=== PATIENT | male | born 1965 | race Caucasian/White ===

== ENCOUNTER 2018-05-03 08:11 | Emergency (ER) | payer BC ==
--- NOTE | 2018-05-03 08:25 | EDM.PDOC ---
ED HPI GENERAL MEDICAL PROBLEM - General Chief Complaint: Neuro Symptoms/Deficits Stated Complaint: LT SIDE OF FACE HURTS,LIPS ARE SWOLLEN Time Seen by Provider: 05/03/18 08:17 - History of Present Illness INITIAL COMMENTS - FREE TEXT/NARRATIVE: HISTORY AND PHYSICAL: History of present illness: Patient 52-year-old white male presents with a concern of left facial pain and numbness he states he was shaving recently and she does lower lip sustaining abrasions had some pain and swelling since then has progressed to pain and numbness to his left face he was seen recently in the clinic and put on Augmentin he denies any visual disturbance any other neurological signs or symptoms or any other complaints. Review of systems: As per history of present illness and below otherwise all systems reviewed and negative. Past medical history: As per history of present illness and as reviewed below otherwise noncontributory. Surgical history: As per history of present illness and as reviewed below otherwise noncontributory. Social history: No reported history of drug or alcohol abuse. Family history: As per history of present illness and as reviewed below otherwise noncontributory. Physical exam: HEENT: Patient has an excoriated area of his lower lip with some small swelling noted, normocephalic, pupils reactive, negative for conjunctival pallor or scleral icterus, mucous membranes moist, throat clear, neck supple, nontender, trachea midline. Lungs: Clear to auscultation, breath sounds equal bilaterally, chest nontender. Heart: S1S2, regular, negative for clicks, rubs, or JVD. Abdomen: Soft, nondistended, nontender. Negative for masses or hepatosplenomegaly. Negative for costovertebral tenderness. Pelvis: Stable nontender. Genitourinary: Deferred. Rectal: Deferred. Extremities: Atraumatic, negative for cords or calf pain. Neurovascular unremarkable. Neuro: Awake, alert, oriented. Cranial nerves II through XII unremarkable. Cerebellum unremarkable. Motor and sensory unremarkable throughout. Exam nonfocal. Diagnostics: CBC CMP PT/INR troponin EKG chest x-ray CT brain CT maxillofacial Therapeutics: Saline lock Impression: #1 superficial facial cellulitis #2 left face pain/paresthesia etiology to be determined Definitive disposition and diagnosis as appropriate pending reevaluation and review of above. - Related Data Allergies Allergy/AdvReac Type Severity Reaction Status Date / Time magnesium stearate Allergy Rash Verified 05/03/18 09:08 moxifloxacin [From Avelox] Allergy Rash Verified 05/03/18 09:08 Home Meds: Home Meds Amoxicillin/Clavulanate K [Augmentin 875-125 MG] 05/03/18 [History] Hydrochlorothiazide 12.5 mg PO DAILY 05/03/18 [History] amLODIPine Besylate [Norvasc] 5 mg PO DAILY 05/03/18 [History] ED ROS GENERAL - Review of Systems Review Of Systems: ROS reveals no pertinent complaints other than HPI. ED EXAM, GENERAL - Physical Exam Exam: See Below (See dictation) Course - Vital Signs Last Recorded V/S: Last Vital Signs Temp 36.3 C 05/03/18 08:23 Pulse 66 05/03/18 08:23 Resp 18 05/03/18 08:23 BP 158/99 H 05/03/18 08:23 Pulse Ox 98 05/03/18 08:23 - Orders/Labs/Meds Orders: Active Orders 24 hr Category Date Time Status Cardiac Monitoring [RC] . DIRECTED Care 05/03/18 08:22 Active EKG 12 Lead [EKG Documentation Completion] [RC] STAT Care 05/03/18 08:15 Active Labs: Laboratory Tests 05/03/18 05/03/18 05/03/18 Range/Units 08:15 08:15 08:15 WBC 5.31 (4.0-11.0) K/uL RBC 4.58 (4.50-5.90) M/uL Hgb 14.0 (13.0-17.0) g/dL Hct 40.0 (38.0-50.0) % MCV 87.3 (80.0-98.0) fL MCH 30.6 (27.0-32.0) pg MCHC 35.0 (31.0-37.0) g/dL RDW Std Deviation 41.4 (28.0-62.0) fl RDW Coeff of Ameena 13 (11.0-15.0) % Plt Count 187 (150-400) K/uL MPV 9.60 (7.40-12.00) fL Neut % (Auto) 64.9 (48.0-80.0) % Lymph % (Auto) 24.9 (16.0-40.0) % Ross % (Auto) 7.9 (0.0-15.0) % Eos % (Auto) 2.1 (0.0-7.0) % Baso % (Auto) 0.2 (0.0-1.5) % Neut # (Auto) 3.5 (1.4-5.7) K/uL Lymph # (Auto) 1.3 (0.6-2.4) K/uL Ross # (Auto) 0.4 (0.0-0.8) K/uL Eos # (Auto) 0.1 (0.0-0.7) K/uL Baso # (Auto) 0.0 (0.0-0.1) K/uL Nucleated RBC % 0.0 /100WBC Nucleated RBCs # 0 K/uL INR 0.97 Sodium 140 (136-148) mmol/L Potassium 3.8 (3.5-5.1) mmol/L Chloride 104 (98-107) mmol/L Carbon Dioxide 27.5 (21.0-32.0) mmol/L BUN 20 H (7.0-18.0) mg/dL Creatinine 1.2 (0.8-1.3) mg/dL Est Cr Clr Drug Dosing 68.08 mL/min Estimated GFR (MDRD) > 60.0 ml/min Glucose 126 H (74-106) mg/dL Calcium 9.0 (8.5-10.1) mg/dL Total Bilirubin 0.7 (0.2-1.0) mg/dL AST 19 (15-37) IU/L ALT 41 (14-63) IU/L Alkaline Phosphatase 56 (46-116) U/L CK-MB (CK-2) 1.1 (0-3.6) ng/mL Troponin I < 0.050 (0.000-0.056) ng/mL Total Protein 7.0 (6.4-8.2) g/dL Albumin 4.0 (3.4-5.0) g/dL Globulin 3.0 (2.0-3.5) g/dL Albumin/Globulin Ratio 1.3 (1.3-2.8) Lipase 119 (73-393) U/L Meds: Medications Discontinued Medications Generic Name Dose Route Start Last Admin Trade Name Freq PRN Reason Stop Dose Admin Iopamidol 75 ml 05/03/18 10:07 05/03/18 10:08 Isovue Multipack-370 (76%) IVPUSH 05/03/18 10:08 75 ml ONETIME STA Administration Departure - Departure Time of Disposition: 10:49 Disposition: Home, Self-Care 01 Condition: Good Clinical Impression: Cellulitis, Neuropathy - Discharge Information Referrals: PCP,None [Primary Care Provider] - Forms: ED Department Discharge Additional Instructions: The following information is given to patients seen in the emergency department who are being discharged to home. This information is to outline your options for follow-up care. We provide all patients seen in our emergency department with a follow-up referral. The need for follow-up, as well as the timing and circumstances, are variable depending upon the specifics of your emergency department visit. If you don't have a primary care physician on staff, we will provide you with a referral. We always advise you to contact your personal physician following an emergency department visit to inform them of the circumstance of the visit and for follow-up with them and/or the need for any referrals to a consulting specialist. The emergency department will also refer you to a specialist when appropriate. This referral assures that you have the opportunity for followup care with a specialist. All of these measure are taken in an effort to provide you with optimal care, which includes your followup. Under all circumstances we always encourage you to contact your private physician who remains a resource for coordinating your care. When calling for followup care, please make the office aware that this follow-up is from your recent emergency room visit. If for any reason you are refused follow-up, please contact the [facility] emergency department at and asked to speak to the emergency department charge nurse. [facility] Neurology Professional Building [address] [place] [address], [address] [place] [address] Continue Augmentin Medrol hydrocodone as prescribed called to schedule appointment with neurology as needed as discussed above and return as needed as discussed - My Orders Last 24 Hours: My Active Orders 05/03/18 08:15 EKG 12 Lead [EKG Documentation Completion] [RC] STAT 05/03/18 08:22 Cardiac Monitoring [RC] . DIRECTED - Assessment/Plan Last 24 Hours: My Active Orders 05/03/18 08:15 EKG 12 Lead [EKG Documentation Completion] [RC] STAT 05/03/18 08:22 Cardiac Monitoring [RC] . DIRECTED
--- NOTE | 2018-05-03 08:59 | CR ---
Single view portable chest Clinical history: respiratory difficulty Comparison: None. Findings: The calcifications are sharp. The cardiac mediastinum is normal for an AP somewhat lordotic exposure. There is no infiltrate failure volume loss. Impression: No acute cardiopulmonary disease
[2018-05-03 09:10] LABS: CHLORIDE,CL 104 mmol/L (98-107); SODIUM,NA 140 mmol/L (136-148)
[2018-05-03] MEDS ORDERED: Iopamidol 755 MG/ML 500 ML Multipack Bottle IVPUSH STA (10:07)
--- NOTE | 2018-05-03 10:10 | CT ---
CT brain scan Medical history: Facial paresthesias. (See CT scan of the face and neck for further information) Findings: The ventricles and sulci are normal. There is no mass edema hemorrhage or space-occupying a bnormality. Lung window images show normal aeration of the paranasal sinuses and mastoids with no jodi varial abnormality of significance. Impression: Normal noncontrast CT brain scan
--- NOTE | 2018-05-03 10:21 | CT ---
CT scan of the face and neck Clinical history: Swollen lips and facial cellulitis rule out abscess Comparison: None. Findings: Multiple computed tomographic sections were acquired with intravenous Isovue-370 75 mL Scans were carried out from the base of the skull caudally to the thoracic inlet. The pterygopalatine fossa is normal. Paralaryngeal and parapharyngeal tissues are normal. Parotid spaces are normal. Jaquelin ttic supraglottic and subglottic structures are normal. Submandibular glands are normal. There is lul nopathy present anterior to the submandibular glands and there is prominent submental adenopathy. The re does appear to be swelling of the facial tissues of the lips with no evidence of abscess. Scattere d anterior cervical lymph nodes are present of moderate size. Impression: No evidence of abscess. Likely reactive adenopathy as described.
== END 2018-05-03 10:57 | disposition home or self-care (01) ==
LOC: MW.ED 08:11
DX: L03.211 Cellulitis of face (principal); G62.9 Polyneuropathy, unspecified; Z88.1 Allergy status to other antibiotic agents; Z88.8 Allergy status to other drugs, medicaments and biological substances; Z79.899 Other long term (current) drug therapy
CPT/HCPCS: 36415; 70450; 70487; 71045; 80053; 82553; 83690; 84484; 85025; 85610; 93005; 99284; Q9967